=== PATIENT | female | born 1990 | race Caucasian/White ===

== ENCOUNTER 2017-02-18 17:54 | Emergency (ER) | payer OTHER ==
[2017-02-18 18:01] VITALS: BP 126/73
--- NOTE | 2017-02-18 22:46 | UC ---
Tory Jiménez Edward, scribed for Chris Rodas MD on 02/18/17 at 1900 . Dizzy HPI HPI Summary: 26 y/o female presents to [facility] c/o sudden onset intermittent dizziness for the past 2 days and HUERTA for 5-6 days. Associated sx: tinnitus (wave feeling), neck pain, vision deficiency in both eyes. The dizziness is described as lightheadedness and weakness aggravated by standing up; episodes last a few minutes. HUERTA located on the L side and to the back of the head down to the neck. The HUERTA was alleviated with Excedrin today. HUERTA rated at 2/10 at triage. Denies photophobia, nausea, joint pain, fever, no hearing deficiency, no nasal congestion. Pt also had numbness in both arms 1 month ago. Pt has had headaches but has never had one lasting this long. No FHx migraines. No PMHx migraines. LNMP this past week. Lightheadedness is resolved in the room. - History Of Current Complaint Chief Complaint: UCHeadache Stated Complaint: DIZZY,HEADACHES Hx Obtained From: Patient Hx Last Menstrual Period: 02/14/17 Onset/Duration: Sudden Onset, Lasting Days - 2 days Timing: Intermittent Episode Lasting - Minutes Character: Lightheaded, Weak Aggravating Factor(s): Supine To Erect Associated Signs And Symptoms: Positive: Tinnitus - "wave feeling", Visual Changes. Negative: Nausea - Allergies/Home Medications Allergies/Adverse Reactions: Allergies Allergy/AdvReac Type Severity Reaction Status Date / Time No Known Allergies Allergy Verified 02/18/17 18:01 Home Medications: Home Medications NK [No Home Medications Reported] 02/18/17 [History Confirmed 02/18/17] PMH/Surg Hx/FS Hx/Imm Hx - Additional Past Medical History Additional PMH: Positive: Rothke's cyst Previously Healthy: No Psychological History: Anxiety - Surgical History Surgical History: Yes Surgery Procedure, Year, and Place: COLPOSCOPY MANY YEARS AGO - Family History Known Family History: Positive: Other - No migraines - Social History Occupation: Employed Part-time - [employer] Lives: With Family Alcohol Use: None Substance Use Type: None Smoking Status (MU): Never Smoked Tobacco Review of Systems Constitutional: Negative - No fever Skin: Negative Eyes: Blurred Vision, Other - No photophobia ENT: Other - "Wave-like sensation in ears" Respiratory: Negative Cardiovascular: Negative Gastrointestinal: Negative - No nausea Genitourinary: Negative Motor: Negative Neurovascular: Negative Musculoskeletal: Myalgia - Neck pain, Other: - No joint pain Neurological: Headache, Weakness, Other - Dizziness described as weakness and lightheadedness. no hearing deficiency Psychological: Negative All Other Systems Reviewed And Are Negative: Yes Physical Exam Triage Information Reviewed: Yes Vital Signs: Initial Vital Signs Temp 99.2 F 02/18/17 17:57 Pulse 82 02/18/17 17:57 Resp 16 02/18/17 17:57 BP 126/73 02/18/17 17:57 Pulse Ox 98 02/18/17 17:57 Vital Signs Reviewed: Yes - Additional Comments The patient is well-nourished in no acute distress and in no acute pain. The skin is warm and dry and skin color reflects adequate perfusion. HEENT: The head is normocephalic and atraumatic. The pupils are equal and reactive. The conjunctivae are clear and without drainage. Nares are patent and without drainage. Mouth reveals moist mucous membranes and the throat is without erythema and exudate. The external ears are intact. The ear canals are patent and without drainage. The tympanic membranes are intact. There is no sinus tenderness. There is no facial droop. Neck is supple with full range of motion and non-tender. There are no carotid bruits. There is no neck vein distension. Respiratory: Chest is non-tender. Lungs are clear to auscultation and breath sounds are symmetrical and equal. Cardiovascular: Hear is regular rate and rhythm. There is no murmur or rub auscultated. There is no peripheral edema and pulses are symmetrical and equal. Abdomen: The abdomen is soft and non-tender. There are normal bowel sounds heard in all four quadrants and there is no organomegaly palpated. Musculoskeletal: There is no back pain noted. Extremities are non-tender with full range of motion. There is good capillary refill. There is no peripheral edema or calf tenderness elicited. Neurological: Patient is alert and oriented to person, place and time. The patient has symmetrical motor strength in all four extremities. Cranial nerves are grossly intact. Deep tendon reflexes are symmetrical and equal in all four extremities. Finger to nose is intact. Psychiatric: The patient has an appropriate affect and does not exhibit any anxiety or depression. Diagnostics - EKG Cardiac Rate: NL Cardiac Rhythm: Sinus: Normal - 18:44 - 74 bpm Dizzy Course/Dx - Course Course Of Treatment: 26 y/o female presents to [facility] c/o sudden onset intermittent dizziness for the past 2 days and HUERTA for 5-6 days. Associated sx: tinnitus (wave feeling), neck pain, vision deficiency in both eyes. The dizziness is described as lightheadedness and weakness aggravated by standing up ; episodes last a few minutes. HUERTA located on the L side and to the back of the head down to the neck. The HUERTA was alleviated with Excedrin today. HUERTA rated at 2/ 10 at triage. Denies photophobia, nausea, joint pain, fever, no hearing deficiency, no nasal congestion. Pt also had numbness in both arms 1 month ago. Pt has had headaches but has never had one lasting this long. No FHx migraines. No PMHx migraines. LNMP this past week. Lightheadedness is resolved in the room. EKG @ 18:44 shows SR @ 74 bpm. - Differential Dx/Diagnosis Differential Diagnosis/HQI/PQRI: Other - Migraine, tension HUERTA, vertigo, anxiety Provider Diagnoses: Headaches Discharge - Discharge Plan Condition: Stable Disposition: HOME Patient Education Materials: Acute Headache (ED) Referrals: Richar Arevalo MD [Medical Doctor] - 3 Days (Please f/u in 2-3 days) Additional Instructions: Continue Excedrin. F/U with Dr. Arevalo The documentation as recorded by the Tory ding Edward accurately reflects the service I personally performed and the decisions made by , Chris Rodas MD.
== END 2017-02-18 19:45 | disposition home or self-care (01) ==
LOC: UCEAST 17:54
DX: R51 Headache (principal); F41.9 Anxiety disorder, unspecified; E23.6 Other disorders of pituitary gland
CPT/HCPCS: 93005; 99211; G0463

== ENCOUNTER 2017-07-11 12:58 | Emergency (ER) | payer OTHER ==
[2017-07-11 13:05] VITALS: BP 133/68
--- NOTE | 2017-07-11 13:24 | UC ---
Cardiac HPI - HPI Summary HPI Summary: 26 yo female with the onset of left sided chest pain 6 days ago occurred at rest lasted three hours and was initially fairly intense since then she has had multiple episodes of left side CP mostly mild they don't seem to be brought on by exertion occas dyspnea no f/c no URI symptoms no left arm pain no n/v no abd pain no exertional component able to exercise without having any symptoms - History of Current Complaint Chief Complaint: UCChestPain Stated Complaint: CHEST PAIN Time Seen by Provider: 07/11/17 13:07 Hx Obtained From: Patient Hx Last Menstrual Period: 07/03/17 Onset/Duration: Sudden Onset, Lasting Hours Timing: Intermittent Episodes Lasting: - variable Initial Severity: Moderate Current Severity: Mild Pain Intensity: 4 Chest Pain Location: Discrete at:, Left Anterior - upper Character: Dull/Aching Alleviating Factor(s): Nothing Associated Signs & Symptoms: Positive: Chest Pain, SOB - rarely, Cough - mild cough and runny nose started a day or two ago - Allergy/Home Medications Allergies/Adverse Reactions: Allergies Allergy/AdvReac Type Severity Reaction Status Date / Time No Known Allergies Allergy Verified 07/11/17 13:05 Home Medications: Home Medications Norethindrone Acetate-Ethinyl [Lo Loestrin Fe 1 mg-10 Mcg / 10 Mcg] 1 tab PO DAILY 07/11/17 [History Confirmed 07/11/17] PMH/Surg Hx/FS Hx/Imm Hx Previously Healthy: Yes - Surgical History Surgical History: Yes Surgery Procedure, Year, and Place: COLPOSCOPY MANY YEARS AGO - Family History Known Family History: Positive: Other - No migraines Negative: Cardiac Disease, Hypertension, Diabetes, Blood Disorder - no hx DVT or PE - Social History Alcohol Use: Weekly Substance Use Type: None Smoking Status (MU): Never Smoked Tobacco - Immunization History Most Recent Influenza Vaccination: NOT UTD Review of Systems Constitutional: Negative Skin: Negative Eyes: Negative ENT: Negative Respiratory: Negative Cardiovascular: Chest Pain Gastrointestinal: Negative Genitourinary: Negative Motor: Negative Neurovascular: Negative Musculoskeletal: Negative Neurological: Negative Psychological: Negative Is Patient Immunocompromised?: No All Other Systems Reviewed And Are Negative: Yes Physical Exam Triage Information Reviewed: Yes Appearance: Well-Appearing, No Pain Distress, Well-Nourished Vital Signs: Initial Vital Signs Temp 99.0 F 07/11/17 13:01 Pulse 94 12/30/17 13:01 Resp 16 07/11/17 13:01 BP 133/68 07/11/17 13:01 Pulse Ox 97 07/11/17 13:01 Vital Signs Reviewed: Yes Eyes: Positive: Conjunctiva Clear ENT: Positive: Hearing grossly normal, Nasal congestion, TMs normal, Uvula midline. Negative: Nasal drainage, Tonsillar swelling, Tonsillar exudate, Trismus, Muffled voice, Hoarse voice, Sinus tenderness Neck: Positive: Supple, Nontender, No Lymphadenopathy Respiratory: Positive: Normal breath sounds, No respiratory distress, No accessory muscle use. Negative: Chest non-tender - tender left sternal borader Cardiovascular: Positive: RRR, No Murmur, Pulses Normal Abdomen Description: Positive: Nontender, No Organomegaly, Soft. Negative: CVA Tenderness (R), CVA Tenderness (L) Bowel Sounds: Positive: Present Musculoskeletal: Positive: ROM Intact, No Edema Neurological: Positive: Alert Psychological Exam: Normal Diagnostics - Radiology No standard instances Xray Interpretation: No Acute Changes - CXR Radiology Interpretation Completed By: Radiologist - EKG Cardiac Rate: NL Ectopy: None - Clinical Impression Provider Diagnoses: chest wall pain Discharge - Discharge Plan Condition: Stable Disposition: HOME Patient Education Materials: Chest Wall Pain (ED) Referrals: Sherri Nugent NP [Primary Care Provider] - 3 Days (if not better) Additional Instructions: EKG and CXR normal I suspect chest wall pain RECHECK IN ER FOR: increased pain shortness of breath fever don't hesitate to call for any questions
--- NOTE | 2017-07-11 14:20 | RAD ---
INDICATION: Left-sided chest pain for "a few days and collateral COMPARISON: None TECHNIQUE: PA and lateral views of the chest were obtained. FINDINGS: The heart and mediastinum are normal in size and contour. The lungs are grossly clear. There is no evidence of large pleural effusion. Visualized bones are normal for the patient's age. There is no radiographic evidence of free air beneath the diaphragm IMPRESSION: No radiographic evidence of acute cardiopulmonary disease.
== END 2017-07-11 14:41 | disposition home or self-care (01) ==
LOC: UCEAST 12:58
DX: R07.89 Other chest pain (principal); R94.31 Abnormal electrocardiogram [ECG] [EKG]
CPT/HCPCS: 71020; 93005; 99211; G0463

== ENCOUNTER 2021-04-25 02:31 | Inpatient (IN) ==
[2021-04-25] MEDS ORDERED: Buffered Lidocaine 1% SYRIN 1 ml INTRADERM ONE (03:33)
[2021-04-25] MEDS ORDERED: Lactated Ringers 1000 ml BAG 1,000 ML IV ONE ×2 (03:33→14:18)
[2021-04-25] MEDS ORDERED: Lactated Ringers 1000 ml BAG 1,000 ML IV SCH ×2 (04:00→15:00)
[2021-04-25 04:08] LABS: Rapid COVID-19 Molecular Undetected (Undetected)
[2021-04-25 04:35] LABS: Urine Benzodiazepine Screen None Detected (None Detect); Urine Cannabinoids Screen None Detected (None Detect); Urine Opiates Screen None Detected (None Detect)
[2021-04-25 04:49] LABS: ABS Basophils 0.1 10^3/ul (0-0.2); ABS Eosinophils 0.1 10^3/ul (0-0.6); ABS Lymphocytes 1.5 10^3/ul (1.0-4.8); ABS Neutrophils 9.5 10^3/ul (1.5-7.7); Eosinophil % 0.9 %; Hematocrit 39 % (35-47); Hemoglobin 13.6 g/dL (12.0-16.0); Lymphocyte % 12.6 %; Mean Corpuscular HGB Conc 35 g/dL (31-36); Mean Corpuscular Hemoglobin 33 pg (27-31); Mean Corpuscular Volume 96 fL (80-97); Mean Platelet Volume 10.5 fL (7.4-10.4); Platelet Count 132 10^3/uL (150-450); Red Blood Count 4.08 10^6 /uL (3.70-4.87); Red Cell Distribution Width 14 % (10-15); White Blood Count 12.2 10^3/uL (3.5-10.8)
[2021-04-25] MEDS ORDERED: OBEPIDURAL 250 ML EPIDURAL ONE (13:40)
[2021-04-25] MEDS ORDERED: Sodium Citrate/Citric Acid LIQ 15 ML UDC PO PRN (14:18)
[2021-04-25] MEDS ORDERED: Lactated Ringers 1000 ml BAG 500 ML IV PRN (14:18)
[2021-04-25] MEDS ORDERED: Phenylephrine 40 mcg/mL 10mL (400mcg) SYRINGE IV PUSH PRN (14:18)
[2021-04-25] MEDS ORDERED: EPHEDrine (Pressors) 50 MG/ML VIAL IV PUSH PRN (14:18)
[2021-04-25] MEDS ORDERED: OBEPIDURAL 250 ML EPIDURAL SCH (15:00)
[2021-04-25 15:11] LABS: Urine Appearance Clear; Urine Bilirubin Negative (Negative); Urine Blood 2+ (Negative); Urine Color Straw; Urine Glucose Negative (Negative); Urine Ketones Negative (Negative); Urine Nitrite Negative (Negative); Urine Protein Negative (Negative); Urine Specific Gravity 1.004 (1.002-1.030); Urine Urobilinogen Negative (Negative)
[2021-04-25 15:13] LABS: Urine Bacteria Absent (Absent); Urine Red Blood Cell Trace(0-2/hpf) (Absent); Urine Squamous Epithelial Cell Present (Absent); Urine White Blood Cell Absent (Absent)
[2021-04-25] MEDS ORDERED: Oxytocin in LR 20 UNITS/1,000 ML BAG IVPB ONE (18:34)
[2021-04-25] MEDS ORDERED: Oxytocin in LR 20 UNITS/1,000 ML BAG IVPB SCH (21:00)
[2021-04-26] MEDS ORDERED: Lidocaine 2% PF 10 ML AMP ONE (00:07)
[2021-04-26] MEDS ORDERED: Bupivacaine 0.25% SDV PF 10 ML VIAL INJ ONE (00:07)
[2021-04-26] MEDS ORDERED: diPHENhydraMINE IV 50 MG/ML 1 ml VIAL (BENADRYL) IV PRN (00:23)
[2021-04-26] MEDS ORDERED: Glycerin ADULT 2.4 gm SUPP PR PRN (04:24)
[2021-04-26] MEDS ORDERED: Methylergonovine 0.2 mg AMPULE 1 ml AMP IM ONE (04:24)
[2021-04-26] MEDS ORDERED: Oxytocin in LR 20 UNITS/1,000 ML BAG IVPB SCH (05:00)
[2021-04-26] MEDS ORDERED: Oxytocin in LR 20 UNITS/1,000 ML BAG IVPB ONE (05:21)
[2021-04-26] MEDS ORDERED: Lidocaine 1% VIAL 10 MG/ML VIAL ONE (05:43)
[2021-04-26] MEDS: Dibucaine 1% OINT 28.35 GM TUBE PR PRN (06:26)
[2021-04-26] MEDS: Witch Hazel PAD JAR TOPICAL PRN (06:26)
[2021-04-26 09:03] LABS: Hematocrit 35 % (35-47); Hemoglobin 12.3 g/dL (12.0-16.0); Mean Corpuscular HGB Conc 35 g/dL (31-36); Mean Corpuscular Hemoglobin 33 pg (27-31); Mean Corpuscular Volume 95 fL (80-97); Mean Platelet Volume 10.3 fL (7.4-10.4); Platelet Count 125 10^3/uL (150-450); Red Cell Distribution Width 14 % (10-15); White Blood Count 24.5 10^3/uL (3.5-10.8)
[2021-04-26 09:21] LABS: ABS Basophils 0.1 10^3/ul (0-0.2); ABS Monocytes 1.2 10^3/ul (0-0.8); ABS Neutrophils 22.3 10^3/ul (1.5-7.7); Eosinophil % 0.1 %
[2021-04-27 06:40] LABS: ABS Basophils 0.1 10^3/ul (0-0.2); ABS Eosinophils 0.2 10^3/ul (0-0.6); ABS Lymphocytes 2.1 10^3/ul (1.0-4.8); ABS Monocytes 1.2 10^3/ul (0-0.8); ABS Neutrophils 11.4 10^3/ul (1.5-7.7); Eosinophil % 1.3 %; Hematocrit 29 % (35-47); Hemoglobin 10.1 g/dL (12.0-16.0); Lymphocyte % 13.7 %; Mean Corpuscular HGB Conc 35 g/dL (31-36); Mean Corpuscular Hemoglobin 34 pg (27-31); Mean Corpuscular Volume 98 fL (80-97); Mean Platelet Volume 10.2 fL (7.4-10.4); Platelet Count 122 10^3/uL (150-450); Red Blood Count 2.98 10^6 /uL (3.70-4.87); Red Cell Distribution Width 14 % (10-15)
[2021-04-28 07:58] VITALS: BP 116/76
[2021-04-28] MEDS: Witch Hazel PAD JAR TOPICAL PRN (11:38)
[2021-04-28] MEDS: Dibucaine 1% OINT 28.35 GM TUBE PR PRN (11:38)
== END 2021-04-28 12:27 | disposition home or self-care (01) | DRG 807 ==
LOC: MCHOBOUT 02:31 → MCHOB 03:38
PROVIDERS: ADMIT Midwife; ATTEND Midwife